=== PATIENT | male | born 2005 | race African-American/Black ===

== ENCOUNTER 2024-01-20 21:28 | Emergency (ER) | payer SELFPAY ==
--- NOTE | ~2024-01-20 | XR_ITS ---
EXAMINATION: XR chest 2V DATE: 01/20/2024 22:03 INDICATION: Left chest pain. TECHNIQUE: Frontal and lateral views of the chest were obtained. COMPARISON: None. FINDINGS: There is no pneumonia, pleural effusion, or pneumothorax. The heart size is normal. IMPRESSION: 1. No acute cardiopulmonary disease. Reviewed, dictated and finalized at location A.
[2024-01-20 21:43] VITALS: BP 132/78; PULSE 108; RESP 99; TEMP 36.8; O2SAT 99
--- NOTE | 2024-01-20 21:46 | ECG_ITS ---
Test Date: 2024-01-20 21:50:29 Measurements Intervals [place] Rate: 110 P: 48 [place]: 157 QRS: 4 QRSD: 76 T: 31 QT: 294 QTc: 399 Interpretive Statements SINUS TACHYCARDIA BORDERLINE R WAVE PROGRESSION, ANTERIOR LEADS MINIMAL Q WAVES- INFERIOR LEADS ABNORMAL ECG No previous ECG available for comparison Electronically Signed On 01-21-2024 06:25:28 CDT by Clarke Puentes D.O.
[2024-01-20 22:01] LABS: Basophils Absolute Auto 0.1 K/mm3 (0.0-0.1); Basophils Percent Auto 0.4 % (0.2-1.2); Eosinophils Absolute Auto 0.1 K/mm3 (0-0.3); Eosinophils Percent Auto 0.8 % (0-4.4); Hematocrit 50.6 % (42.0-52.0); Hemoglobin 16.4 g/dL (14.0-18.0); Immature Granulocyte Absolute 0.04 K/mm3 (0.00-0.031); Immature Granulocyte Percent A 0.3 % (0-0.5); Lymphocytes Percent Auto 14.2 % (18.3-44.2); Mean Corpuscular HGB Conc 32.4 g/dl (32-36); Mean Corpuscular Hemoglobin 26.5 pg (26-34); Mean Corpuscular Volume 81.6 fl (80-100); Mean Platelet Volume 9.6 fl (7.4-10.4); Monocytes Absolute Auto 0.9 K/mm3 (0.1-0.6); Monocytes Percent Auto 6.4 % (2.6-8.5); Neutrophils Absolute Auto 10.9 K/mm3 (1.3-6.7); Neutrophils Percent Auto 77.9 % (45.5-73.1); Platelet Count Result 357 k/mm3 (150-375); Red Cell Distribution Width 15.4 % (11.5-14.5); White Blood Count 14.1 K/mm3 (4.5-10.0)
[2024-01-20 22:13] LABS: Alanine Aminotransferase 26 U/L (6-50); Albumin Level 4.4 g/dL (3.7-5.6); Alkaline Phosphatase 70 U/L (58-237); Anion Gap 9 mmol/L (4-12); Aspartate Amino Transferase 33 U/L (17-59); Bilirubin,Total 1.2 mg/dL (0.2-1.3); Blood Urea Nitrogen 16 mg/dL (8-21); Calcium 9.2 mg/dL (8.9-10.7); Carbon Dioxide 28 mmol/L (22-30); Chloride 102 mmol/L (98-107); Estimated CRCL calculation 161 ml/min; Estimated Glomerular Filt Rate > 60; Glucose 105 mg/dL (65-110); Lipase 29 U/L (23-300); Sodium 139 mmol/L (134-143)
[2024-01-20 22:14] LABS: INR 1.1; Prothrombin Time 14.4 Seconds (11.1-14.7)
[2024-01-20 22:15] LABS: Partial Thromboplastin Time 32.7 Seconds (22.3-36.8)
[2024-01-20 22:24] LABS: Troponin I < 0.012 ng/mL (0.000-0.034)
[2024-01-20 22:32] VITALS: PULSE 109; O2SAT 100
[2024-01-20 22:33] VITALS: O2SAT 100
[2024-01-20] MEDS: Please add drug allergy info to patient profile. 1 EACH XX (22:33)
[2024-01-20] MEDS: methocarbamoL 750 MG TABLET 1500 MG PO (23:58)
[2024-01-20] MEDS: ACETAMINOPHEN 500 MG TABLET 1000 MG PO (23:58)
[2024-01-20] MEDS: KETOROLAC 15 MG/ML VIAL (*BKC) IV PUSH (23:59)
[2024-01-21 00:03] LABS: D Dimer < 0.27 ug/mL (<0.48)
[2024-01-21] MEDS: Please add drug allergy info to patient profile. 1 EACH XX (00:04)
[2024-01-21 00:12] LABS: NT Pro B Type Natriuretic Pept < 20 pg/mL (19.9-100)
[2024-01-21 00:32] VITALS: BP 137/90; PULSE 98; RESP 20; TEMP 36.6; O2SAT 100
--- NOTE | 2024-01-21 00:56 | ECG_ITS ---
Test Date: 2024-01-21 01:01:19 Measurements Intervals [place] Rate: 99 P: 43 VT: 156 QRS: 22 QRSD: 73 T: 31 QT: 309 QTc: 396 Interpretive Statements SINUS RHYTHM BASELINE ARTIFACT- I, II, III, AVR, AVL, AVF NORMAL ECG Compared to ECG 01/20/2024 21:50:29 HEART RATE HAS DECREASED Electronically Signed On 01-21-2024 06:26:21 CDT by Clarke Puentes D.O.
--- NOTE | 2024-01-21 01:00 | ED.GENADULT ---
HPI - General Adult General Chief complaint: Chest Pain Stated complaint: pain with inspiration Time Seen by Provider: 01/20/24 23:23 History of Present Illness HPI narrative: This is a 18-year-old male presenting ED with chest pain. Patient has a sharp pain in his left armpit that radiates the rest side of his chest. It started after he began weightlifting again after a long period off. It is worse with deep breaths. It is not associated with exertion. He has never had pain like this before there is no exacerbating alleviating factors. He has no lower extremity edema for history of DVT/blood clots. He has no fevers chills productive cough. He did have a cough/viral illness 3-4 days ago. Related Data Allergies Allergy/AdvReac Type Severity Reaction Status Date / Time No Known Allergies Allergy Verified 01/20/24 22:32 Exam Narrative: APPEARANCE: Anxious appearing and pacing around the room Head: atraumatic. EYES: EOMI, NOSE: Atraumatic NECK: Trachea midline RESPIRATORY: No increased rate of breathing clear to auscultation CARDIOVASCULAR: RRR, no peripheral edema ABDOMINAL: Non-distended MUSCULOSKELETAl: No obvious deformities NEURO: Alert. Moving 4/4 extremities SKIN:: Warm, dry. Normal color PSYCHIATRIC: Normal affect Course Vital Signs Vital signs: Vital Signs Temperature 98.2 F 01/20/24 21:43 Pulse Rate 108 H 01/20/24 21:43 Respiratory Rate 99 H 01/20/24 21:43 Blood Pressure 132/78 01/20/24 21:43 Pulse Oximetry 99 01/20/24 21:43 Oxygen Delivery Room Air 01/20/24 21:43 Temperature 97.9 F 01/21/24 00:32 Pulse Rate 98 01/21/24 00:32 Respiratory Rate 20 01/21/24 00:32 Blood Pressure 137/90 01/21/24 00:32 Pulse Oximetry 100 01/21/24 00:32 Oxygen Delivery Room Air 01/20/24 22:33 Medical Decision Making [facility] Narrative Medical decision making narrative: -Course: 18-year-old male presenting with intermittent sharp pains that started after weightlifting. Workup here was negative including troponins BNP D-dimer chest x-ray and EKG. Suspect pleurisy versus MSK pain Patient will be discharged trial of Motrin Tylenol and Robaxin. Given primary care follow-up and return precautions -DDX includes but is not limited to: MSK pain, pleurisy, muscle spasm, ACS, pneumonia, pneumothorax, PE -Co-morbidities complicating care: Obesity -Independent interpretation of studies: Labs reviewed Imaging reviewed Independent EKG interpretation: Rhythm [sinus], Rate [90], [place] -[normal], [place] -[normal], QRS [narrow], QTC [normal], T waves -[negative for concerning inversions], ST Segments - [Negative for concerning elevations] Final interpretations: [Normal Sinus Rhythm] -Interventions: Motrin Tylenol Robaxin -Shared decision making / Disposition: Discharge -RX Motrin Tylenol Robaxin Vital Signs Vital Signs: Vital Signs Temperature 98.2 F 01/20/24 21:43 Pulse Rate 108 H 01/20/24 21:43 Respiratory Rate 99 H 01/20/24 21:43 Blood Pressure 132/78 01/20/24 21:43 Pulse Oximetry 99 01/20/24 21:43 Oxygen Delivery Room Air 01/20/24 21:43 Temperature 97.9 F 01/21/24 00:32 Pulse Rate 98 01/21/24 00:32 Respiratory Rate 20 01/21/24 00:32 Blood Pressure 137/90 01/21/24 00:32 Pulse Oximetry 100 01/21/24 00:32 Oxygen Delivery Room Air 01/20/24 22:33 Lab Data 01/20/24 21:56 01/20/24 21:56 Labs: Lab Results 01/20/24 Range/Units 21:56 WBC 14.1 H (4.5-10.0) K/mm3 RBC 6.20 (4.6-6.20) M/mm3 Hgb 16.4 (14.0-18.0) g/dL Hct 50.6 (42.0-52.0) % MCV 81.6 (80-100) fl MCH 26.5 (26-34) pg MCHC 32.4 (32-36) g/dl RDW 15.4 H (11.5-14.5) % Plt Count 357 (150-375) k/mm3 MPV 9.6 (7.4-10.4) fl Immature Gran % (Auto) 0.3 (0-0.5) % Neut % (Auto) 77.9 H (45.5-73.1) % Lymph % (Auto) 14.2 L (18.3-44.2) % Leon % (Auto) 6.4 (2.6-8.5) % Eos % (Auto) 0.8 (0-4.4) % Baso % (Auto) 0.4 (
[2024-01-21 01:33] LABS: Troponin I < 0.012 ng/mL (0.000-0.034)
== END 2024-01-21 01:18 | disposition home or self-care (01) ==
PROVIDERS: Emergency Provider Emergency Medicine
DX: R07.89 Other chest pain (principal); E66.9 Obesity, unspecified; R00.0 Tachycardia, unspecified
CPT/HCPCS: 36415; 71046; 80053; 83690; 83880; 84484; 85025; 85380; 85610; 85730; 93005; 96374; 99284; A9270; J1885